=== PATIENT | female | born 2000 | race Caucasian/White ===

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

== ENCOUNTER 2022-01-27 12:10 | Inpatient (IN) | payer MEDICAID, OTHER ==
[2022-01-27 12:56] LABS: Amphetamine Screen,Urine Not Detected (NotDetected); Barbiturate Screen,Urine Not Detected (NotDetected); Benzodiazepines Screen,Urine Detected (NotDetected); Cocaine Screen,Urine Not Detected (NotDetected); Methadone Screen, Urine Not Detected (NotDetected); Opiate Screen,Urine Not Detected (NotDetected); Oxycodone Screen, Urine Not Detected (NotDetected); Phencyclidine Screen,Urine Not Detected (NotDetected); Tricyclic Antidepressant,Urine Not Detected (NotDetected); Urn Cannabinoid Scrn Not Detected (NotDetected)
--- NOTE | 2022-01-27 13:41 | ED ---
Psych HPI - General Chief Complaint: Psychiatric Symptoms Stated Complaint: EPS eval Time Seen by Provider: 01/27/22 12:26 Source: patient, RN notes reviewed Mode of arrival: ambulatory Limitations: no limitations - History of Present Illness Initial Comments: 22-year-old female presents emergency Department with chief complaint of needs psychiatric evaluation. Patient was recently in fdc she has bonded out by [facility] for evaluation. Patient's been having increasing depression, suicidal ideation, hallucinations. Patient's been receiving benzodiazepines in fdc. She states that she wants to harm herself but she does not want to live like this but also wants help. She has been self harming by cutting her legs. She attempted suicide in fdc. - Related Data Home Medications Medication Instructions Recorded Confirmed LORazepam [Ativan] 1 mg PO TID 01/27/22 01/27/22 OLANZapine [ZyPREXA] 10 mg PO DIRECTED 01/27/22 01/27/22 Sertraline [Zoloft] 100 mg PO DAILY 01/27/22 01/27/22 Allergies Allergy/AdvReac Type Severity Reaction Status Date / Time No Known Allergies Allergy Verified 01/27/22 14:55 Review of Systems ROS Statement: Those systems with pertinent positive or pertinent negative responses have been documented in the HPI. ROS Other: All systems not noted in ROS Statement are negative. Past Medical History Past Medical History: No Reported History History of Any Multi-Drug Resistant Organisms: None Reported Past Surgical History: No Surgical Hx Reported Past Psychological History: Anxiety Smoking Status: Vaper Past Alcohol Use History: None Reported Past Drug Use History: None Reported General Exam Limitations: no limitations General appearance: alert, in no apparent distress Head exam: Present: atraumatic, normocephalic, normal inspection Eye exam: Present: normal appearance, PERRL, EOMI. Absent: scleral icterus, conjunctival injection, periorbital swelling ENT exam: Present: normal exam, normal oropharynx, mucous membranes moist Neck exam: Present: normal inspection, full ROM. Absent: tenderness, meningismus, lymphadenopathy Respiratory exam: Present: normal lung sounds bilaterally. Absent: respiratory distress, wheezes, rales, rhonchi, stridor Cardiovascular Exam: Present: regular rate, normal rhythm, normal heart sounds. Absent: systolic murmur, diastolic murmur, rubs, gallop, clicks GI/Abdominal exam: Present: soft, normal bowel sounds. Absent: distended, tenderness, guarding, rebound, rigid Neurological exam: Present: alert Psychiatric exam: Present: depressed Skin exam: Present: warm, dry, intact, normal color. Absent: rash Course Vital Signs 01/27/22 12:14 Temperature 98.1 F Pulse Rate 99 Respiratory 16 Rate Blood Pressure 131/71 O2 Sat by Pulse 100 Oximetry Medical Decision Making - Medical Decision Making admit To psychiatric services. - Lab Data Lab Results 01/27/22 Range/Units 12:35 Urine Opiates Screen Not Detected (NotDetected) Ur Oxycodone Screen Not Detected (NotDetected) Urine Methadone Screen Not Detected (NotDetected) Ur Propoxyphene Screen Not Detected (NotDetected) Ur Barbiturates Screen Not Detected (NotDetected) U Tricyclic Antidepress Not Detected (NotDetected) Ur Phencyclidine Scrn Not Detected (NotDetected) Ur Amphetamines Screen Not Detected (NotDetected) U Methamphetamines Scrn Not Detected (NotDetected) U Benzodiazepines Scrn Detected H (NotDetected) Urine Cocaine Screen Not Detected (NotDetected) U Marijuana (THC) Screen Not Detected (NotDetected) Disposition Clinical Impression: Depression, Suicidal ideation Disposition: TRANSFER TO PSYCH HOSP/UNIT Referrals: None,Stated [Primary Care Provider] - 1-2 days
[2022-01-27] MEDS ORDERED: ACETAMINOPHEN TAB 325 MG TAB PO STA (18:10)
[2022-01-27] MEDS ORDERED: LORazepam 1 MG TAB PO STA (19:08)
[2022-01-27] MEDS ORDERED: MAG HYDROX/AL HYDROX/SIMETH 30 ML CUP PO PRN (20:27)
[2022-01-27] MEDS ORDERED: ACETAMINOPHEN TAB 325 MG TAB PO PRN (20:27)
[2022-01-27] MEDS ORDERED: LORazepam 1 MG TAB PO PRN (20:27)
[2022-01-27] MEDS ORDERED: MAGNESIUM HYDROXIDE 2,400 MG/10 ML CUP PO PRN (20:27)
[2022-01-27] MEDS ORDERED: LORazepam 2 MG/ML INJ IM PRN (20:29)
[2022-01-28 07:44] LABS: Anisocytosis Slight; Basophils # (A) 0.1 k/uL (0-0.2); Basophils % (A) 1 %; Eosinophils # (A) 0.3 k/uL (0-0.7); Eosinophils % (A) 4 %; HCT 38.3 % (34.0-46.0); HGB 11.4 gm/dL (11.4-16.0); Hypochromasia Marked; Lymphocytes # (A) 2.2 k/uL (1.0-4.8); Lymphocytes % (A) 29 %; MCH 25.2 pg (25.0-35.0); MCHC 29.8 g/dL (31.0-37.0); MCV 84.3 fL (80.0-100.0); Mean Platelet Volume 6.8; Monocytes # (A) 0.7 k/uL (0-1.0); Monocytes % (A) 9 %; Neutrophils # (A) 4.2 k/uL (1.3-7.7); Neutrophils % (A) 54 %; Platelet Count 375 k/uL (150-450); RBC 4.54 m/uL (3.80-5.40); RDW 16.1 % (11.5-15.5); WBC 7.8 k/uL (3.8-10.6)
[2022-01-28 07:53] LABS: ALT 56 U/L (4-34); AST 34 U/L (14-36); African American GFR (CKD) >90 (>60 ml/min/1.73 sqM); Albumin 3.6 g/dL (3.5-5.0); Alkaline Phosphatase 80 U/L (38-126); Anion Gap 8 mmol/L; Blood Urea Nitrogen 11 mg/dL (7-17); Calcium 8.9 mg/dL (8.4-10.2); Carbon Dioxide 27 mmol/L (22-30); Chloride 106 mmol/L (98-107); Glucose 84 mg/dL (74-99); Non-African American GFR(CKD) >90 (>60 ml/min/1.73 sqM); Potassium 4.2 mmol/L (3.5-5.1); Sodium 141 mmol/L (137-145); Total Bilirubin 0.3 mg/dL (0.2-1.3); Total Protein 6.8 g/dL (6.3-8.2)
[2022-01-28] MEDS: haloperidoL 5 MG TAB PO PRN (09:33)
[2022-01-28] MEDS ORDERED: LORazepam 2 MG/ML INJ IM PRN (09:45)
[2022-01-28] MEDS ORDERED: hydrOXYzine pamoate 25 MG CAP PO PRN (10:03)
--- NOTE | 2022-01-28 10:20 | P.HP ---
Psychiatric H&P - . H&P Date: 01/28/22 History & Physical: Allergies Allergy/AdvReac Type Severity Reaction Status Date / Time No Known Allergies Allergy Verified 01/27/22 14:55 Vital Signs Temp 98.6 F 01/28/22 07:17 Pulse 98 01/28/22 07:17 Resp 26 H 01/27/22 20:30 BP 117/74 01/28/22 07:17 Pulse Ox 98 01/28/22 07:17 Intake & Output 01/27/22 01/28/22 01/28/22 18:59 06:59 18:59 Weight 63.503 kg 66.224 kg Laboratory Last Values WBC 7.8 k/uL (3.8-10.6) 01/28/22 07:08 RBC 4.54 m/uL (3.80-5.40) 01/28/22 07:08 Hgb 11.4 gm/dL (11.4-16.0) 01/28/22 07:08 Hct 38.3 % (34.0-46.0) 01/28/22 07:08 MCV 84.3 fL (80.0-100.0) 01/28/22 07:08 MCH 25.2 pg (25.0-35.0) 01/28/22 07:08 MCHC 29.8 g/dL (31.0-37.0) L 01/28/22 07:08 RDW 16.1 % (11.5-15.5) H 01/28/22 07:08 Plt Count 375 k/uL (150-450) 01/28/22 07:08 MPV 6.8 01/28/22 07:08 Neutrophils % 54 % 01/28/22 07:08 Lymphocytes % 29 % 01/28/22 07:08 Monocytes % 9 % 01/28/22 07:08 Eosinophils % 4 % 01/28/22 07:08 Basophils % 1 % 01/28/22 07:08 Neutrophils # 4.2 k/uL (1.3-7.7) 01/28/22 07:08 Lymphocytes # 2.2 k/uL (1.0-4.8) 01/28/22 07:08 Monocytes # 0.7 k/uL (0-1.0) 01/28/22 07:08 Eosinophils # 0.3 k/uL (0-0.7) 01/28/22 07:08 Basophils # 0.1 k/uL (0-0.2) 01/28/22 07:08 Hypochromasia Marked 01/28/22 07:08 Anisocytosis Slight 01/28/22 07:08 Sodium 141 mmol/L (137-145) 01/28/22 07:08 Potassium 4.2 mmol/L (3.5-5.1) 01/28/22 07:08 Chloride 106 mmol/L (98-107) 01/28/22 07:08 Carbon Dioxide 27 mmol/L (22-30) 01/28/22 07:08 Anion Gap 8 mmol/L 01/28/22 07:08 BUN 11 mg/dL (7-17) 01/28/22 07:08 Creatinine 0.53 mg/dL (0.52-1.04) 01/28/22 07:08 Est GFR (CKD-EPI)AfAm >90 (>60 ml/min/1.73 sqM) 01/28/22 07:08 Est GFR (CKD-EPI)NonAf >90 (>60 ml/min/1.73 sqM) 01/28/22 07:08 Glucose 84 mg/dL (74-99) 01/28/22 07:08 Calcium 8.9 mg/dL (8.4-10.2) 01/28/22 07:08 Total Bilirubin 0.3 mg/dL (0.2-1.3) 01/28/22 07:08 AST 34 U/L (14-36) 01/28/22 07:08 ALT 56 U/L (4-34) H 01/28/22 07:08 Alkaline Phosphatase 80 U/L (38-126) 01/28/22 07:08 Total Protein 6.8 g/dL (6.3-8.2) 01/28/22 07:08 Albumin 3.6 g/dL (3.5-5.0) 01/28/22 07:08 TSH 1.290 mIU/L (0.465-4.680) 01/28/22 07:08 Urine Opiates Screen Not Detected (NotDetected) 01/27/22 12:35 Ur Oxycodone Screen Not Detected (NotDetected) 01/27/22 12:35 Urine Methadone Screen Not Detected (NotDetected) 01/27/22 12:35 Ur Propoxyphene Screen Not Detected (NotDetected) 01/27/22 12:35 Ur Barbiturates Screen Not Detected (NotDetected) 01/27/22 12:35 U Tricyclic Antidepress Not Detected (NotDetected) 01/27/22 12:35 Ur Phencyclidine Scrn Not Detected (NotDetected) 01/27/22 12:35 Ur Amphetamines Screen Not Detected (NotDetected) 01/27/22 12:35 U Methamphetamines Scrn Not Detected (NotDetected) 01/27/22 12:35 U Benzodiazepines Scrn Detected (NotDetected) H 01/27/22 12:35 Urine Cocaine Screen Not Detected (NotDetected) 01/27/22 12:35 U Marijuana (THC) Screen Not Detected (NotDetected) 01/27/22 12:35 Coronavirus (PCR) Not Detected (Not Detectd) 01/27/22 15:57 01/28/22 09:46 IDENTIFYING DATA: Patient is a 22-year-old female, currently , has 2 kids, lives with her grandfather and father in a house. Patient was recently released from long-term. HPI: Patient presented to the hospital yesterday for a psychiatric evaluation brought in from the long-term. Patient apparently has been having increase in her depression and suicidal thoughts and hallucinations according to ER report. Patient apparently was cutting herself in her legs and attempted suicide in the long-term. Patient's UDS was positive for benzodiazepines. Patient was seen today and admitted voluntarily to the mental health unit. Patient claims that she has been having hallucinations and increase in her anxiety and depression lately. She was fairly tearful and had poor hygiene and grooming during the conversation. She claims that the "Ativan is not helping me anymore" and states that the anxiety "is coming from my chest". She states that she does not know what's real or not. She states that "I want to be with God" and was stating that she is having suicidal thoughts however no intent or plan. She states that it is a "constant trevino in my mind" and spoke about her drug use and also her going to long-term several times and also rehab. She claims that she was cutting herself in the long-term with a razor blade and attempted to hang herself as well. She states that the auditory and visual hallucinations or fairly vague and states that "I can't explain it" and states that she sees "hell". She also spoke about paranoia about other people talking about her and also states that "Satan and demons are getting to come to get me". She states that she's been in long-term for 2 months now for larceny charges. She states that her sleep has been poor. Patient denies homicidal ideations intent or plan. Patient denies any flight of ideas racing thoughts and increased in goal directed behavior. Patient admits to using heroin and methamphetamine in the past however has been sober for the past 2-3 months. She states that she also uses marijuana frequently. Denies any other recreational drug use or cigarettes. She claims that she was sharing needles before when she was using heroin and states that she may be at risk for HIV and hep c. PAST PSYCHIATRIC HISTORY: Patient states that she has some formal psychiatric history mainly substance related. Patient is currently on zyprexa, ativan and zoloft. She claims that she was psychiatrically hospitalized twice at the age of 14 [facility] and also at [facility]. Patient denies any psychiatric outpatient follow-up. She claims that she attempted suicide twice in the long-term. PMH:denies ALLERGIES: as per EMR CHEMICAL DEPENDENCY HISTORY: as per HPI FAMILY PSYCHIATRIC/SUBSTANCE USE HISTORY: states that there is schizophrenia and bipolar disorder on her mothers side. SOCIAL HISTORY: Patient was born and raised in [place]. She states that she completed up to the 10th grade in school. 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 She claims that she has been in and out of long-term several times within the past 2-3 years. She states that she has 2 kids, is currently . She states that she lives currently in a house with her grandfather and father. MENTAL STATUS EXAM: General Appearance: Patient appears to have several tattoos, stated age is alert, directable, and attempts to cooperate. Tearful at times. Patient appears to have poor hygiene and grooming. Behavior: Patient is seated without any agitated behavior. Tearful. Speech: Patient's speech is fluent and nonpressured. Soft tone. Mood/Affect: Patient reports their mood is depressed and anxious, affect is congruent Suicidality/Homicidality: Patient denies having any homicidal ideation intent or plan. She claims that she does have suicidal thoughts, no intent or plan. Perceptions: Patient denies any visual hallucinations and denies any auditory hallucinations Though content/process: There is no evidence of any delusional thought content and thought process is linear and goal-directed. Focused on her drug use and was fairly vague about her symptoms. Memory and concentration: AOX3, grossly intact for the purposes of this session. Can spell "WORLD" backwards Judgment and insight: poor STRENGTHS/WEAKNESSES: strength is that patient is resilient. Weakness is that patient has poor judgment and is impulsive INTELLECT: average IMPRESSIONS: Major depressive disorder, recurrent, with psychotic features Anxiety disorder unspecified Cannabis use disorder History of methamphetamine and opioid abuse PLAN: -Patient is admitted under voluntary status to MHU for stabilization of psychiatric symptoms and safety. Patient has signed adult voluntary form and medication consent and is placed in patient's chart. -Medications : Will start patient on Cymbalta 30 mg daily for mood/anxiety, Seroquel 50 mg daily at bedtime for mood stabilization/insomnia/psychosis. -Ativan and Haldol PRN for agitation/aggression -ordered Hep C, HIV and syphillis due to patients exposure and high risk behavior including sharing needles. -Patient was counselled on substance abuse and desired to cut back on use -Patient was informed of the risks, benefits and side effects of the medication and patient verbally consented to taking the medications. Patient signed med consent form and was placed in chart. -Internal Medicine consult to perform medical evaluation and physical. -NRT - not needed as patient does not smoke. -SW on board for discharge planning. Encourage patient to participate in groups to work on coping skills. Will offer rehab for substance use.
[2022-01-28] MEDS: DULoxetine HCL 30 MG CAPSULE.DR PO SCH (11:12)
[2022-01-28 12:01] LABS: LDL Cholesterol,Calculated 48.7 mg/dL (0.0-131.0)
[2022-01-28] MEDS: LORazepam 1 MG TAB PO PRN (15:26)
[2022-01-28 17:28] LABS: HIV 2 AB Non-Reactive (Non-Reactive); HIV AB P24 Non-Reactive (Non-Reactive); HIV P24 AG Non-Reactive (Non-Reactive)
--- NOTE | 2022-01-28 18:07 | P.MDCNMH ---
History of Present Illness Chief Complaint: Medical management This is a 22-year-old female with history of substance abuse depression admitted for worsening depression with psychotic features. Patient denies any history of medical issues denies diabetes cardiac renal or lung problems. Currently does not take any medications at home. She states she is feeling fine otherwise no shortness of breath no GI no respiratory complaints. Her blood work is grossly normal. 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 Her liver enzymes are normal. She does have high risk behavior Review of Systems Negative except as mentioned in HPI Past Medical History Past Medical History: No Reported History History of Any Multi-Drug Resistant Organisms: None Reported Past Surgical History: No Surgical Hx Reported Past Anesthesia/Blood Transfusion Reactions: No Reported Reaction Past Psychological History: Anxiety, Bipolar, Depression Smoking Status: Former smoker, Vaper Past Alcohol Use History: None Reported Past Drug Use History: Heroin, Methamphetamine, Opiates Additional Drug Use History / Comment(s): pt reports history of IV drug abuse including heroin, methamphetamines, and fentanyl. pt reports last use was beginning of November 2021 Medications and Allergies Home Medications Medication Instructions Recorded Confirmed Type LORazepam [Ativan] 1 mg PO TID 01/27/22 01/27/22 History OLANZapine [ZyPREXA] 10 mg PO DIRECTED 01/27/22 01/27/22 History Sertraline [Zoloft] 100 mg PO DAILY 01/27/22 01/27/22 History Allergies Allergy/AdvReac Type Severity Reaction Status Date / Time No Known Allergies Allergy Verified 01/27/22 14:55 Physical Exam Vitals: Vital Signs Temp Pulse Resp BP Pulse Ox 01/28/22 07:17 98.6 F 98 117/74 98 01/27/22 20:30 98.5 F 78 26 H 143/66 98 - Constitutional General appearance: cooperative, no acute distress - EENT Eyes: EOMI, PERRLA, normal appearance ENT: normal oropharynx - Neck Neck: no lymphadenopathy, normal ROM - Respiratory Respiratory: bilateral: CTA - Cardiovascular Rhythm: regular Heart sounds: normal: S1, S2 - Gastrointestinal General gastrointestinal: normal bowel sounds, no organomegaly, no tenderness - Integumentary Integumentary: normal - Neurologic Neurologic: CNII-XII intact - Musculoskeletal Musculoskeletal: gait normal, strength equal bilaterally - Psychiatric Psychiatric: A&O x's 3 Cranial Nerve Examination - Cranial Nerves Cranial Nerve I- Olfactory: Intact Cranial Nerve II- Optic: Intact Cranial Nerve III- Oculomotor: Intact Cranial Nerve IV- Trochlear: Intact Cranial Nerve V- Trigeminal: Intact Cranial Nerve - Abducens: Intact Cranial Nerve VII- Facial: Intact Cranial Nerve VIII- Auditory: Intact Cranial Nerve IX- Glossopharyngeal: Intact Cranial Nerve X- Vagus: Intact Cranial Nerve XI- Accessory: Intact Cranial Nerve XII- Hypoglossal: Intact Results CBC & Chem 7: 01/28/22 07:08 01/28/22 07:08 Labs: Abnormal Lab Results - Last 24 Hours (Table) 01/28/22 01/28/22 01/28/22 Range/Units 07:08 07:08 07:08 MCHC 29.8 L (31.0-37.0) g/dL RDW 16.1 H (11.5-15.5) % ALT 56 H (4-34) U/L Hep C IgG Ab Reactive A (Nonreactive) Assessment and Plan Plan: #Worsening depression with psychotic features Psychiatry following Checking lipid panel, TSH, A1c, HIV, hepatitis viral panel, syphilis Hepatitis C antibody positive, we will order titer
[2022-01-28] MEDS: QUEtiapine 50 MG TAB PO SCH (21:09)
[2022-01-29] MEDS: DULoxetine HCL 30 MG CAPSULE.DR PO SCH (08:34)
--- NOTE | 2022-01-29 10:07 | P.PN ---
Progress Note - Text Progress Note Date: 01/29/22 Interval History: Patient was seen in her room this morning and was doing meditation and was dir ectable and agreeable to speak with television script writer in the office. Patient appears to be less tearful however continues to have a constricted affect. She states that she feels "about the same" as yesterday. She claims that she is still feeling somewhat depressed and endorsed some paranoia about other patients on the unit. She states that she slept fairly well last night. She explained to television script writer today that she is feeling "like I don't know what to do" and states that she feels very indecisive. She claims that her anxiety is still poorly controlled. She was agreeable to have her Cymbalta increased and wants to stay on the same dose of Seroquel. She states that she has not been going to groups however was encouraged to do so today. fair appetite. At this time patient denies any suicidal or homical ideations, intent or plan. Patient denies any visual hallucinations. continues to endorse AH, but states they are improving. Patient denies any side effects from the medications and has been compliant with meds. Mental Status Exam: General Appearance: Patient appears to have several tattoos, stated age is alert, directable, and attempts to cooperate. not tearful today. Patient appears to have improving hygiene and grooming. Behavior: Patient is seated without any agitated behavior. more cooperaitve Speech: Patient's speech is fluent and nonpressured. Soft tone. Mood/Affect: Patient reports their mood is depressed and anxious, improving, affect is congruent and constricted Suicidality/Homicidality: Patient denies having any homicidal ideation intent or plan. denies any suicidal thoughts, no intent or plan. Perceptions: Patient denies any visual hallucinations and denies any auditory hallucinations Though content/process: There is no evidence of any delusional thought content and thought process is linear and goal-directed. Memory and concentration: AOX3, grossly intact for the purposes of this session Judgment and insight: poor, improving midlly IMPRESSIONS: Major depressive disorder, recurrent, with psychotic features Anxiety disorder unspecified Cannabis use disorder History of methamphetamine and opioid abuse Plan: -Patient continues to meet criteria for inpatient psychiatric admission for symptom stabilization and safety. Patient has signed adult voluntary form and medication consent and was placed in patient's chart. -Medications: Increase Cymbalta to 60 mg daily for mood/anxiety, Seroquel 50 mg daily at bedtime for mood stabilization/insomnia/psychosis. -When necessary Ativan and Haldol for agitation/aggression. -patient is positive for Hep C IgG, negative for HIV and syphillis. Patients ALT slightly elevated. She will need to follow up with pcp and referred to GI for treatment as an outpatient. -NRT - not needed as patient does not smoke. -SW on board for discharge planning. Encouraged the patient to participate in milieu. Will offer rehab for substance use.
[2022-01-29] MEDS: haloperidoL 5 MG TAB PO PRN ×2 (10:24→17:29)
[2022-01-29] MEDS: LORazepam 1 MG TAB PO PRN (10:24)
[2022-01-29] MEDS: QUEtiapine 50 MG TAB PO SCH (21:34)
--- NOTE | 2022-01-30 07:29 | P.PN ---
Progress Note - Text Progress Note Date: 01/30/22 Interval History: Patient was seen in her room this morning and was agreeable to speak with television writer in the office. Patient appears to be having a constricted affect this morning. She states that she is doing better today. She claims that her mood and anxiety of an improving on the medications. She states that she was able to sleep fairly throughout the night. She claims that she was hearing voices yesterday and required Haldol. She claims that this morning she has not heard any voices and does not feel that she is in distress. She claims that she did go to some groups. She did state that she signed AMA form yesterday wants to go to her father's house. She claims that she would like to eventually go to rehab and will take the resources. She asked questions about her medications. fair appetite. At this time patient denies any suicidal or homical ideations, intent or plan. Patient denies any visual hallucinations. continues to endorse AH, but states they are improving. Patient denies any side effects from the medications and has been compliant with meds. Mental Status Exam: General Appearance: Patient appears to have several tattoos, stated age is alert, directable, and attempts to cooperate. Patient appears to have improving hygiene and grooming. Behavior: Patient is seated without any agitated behavior. more cooperaitve Speech: Patient's speech is fluent and nonpressured. Mood/Affect: Patient reports their mood is improving, affect is congruent and constricted Suicidality/Homicidality: Patient denies having any homicidal ideation intent or plan. denies any suicidal thoughts, no intent or plan. Perceptions: Patient denies any visual hallucinations and denies any current auditory hallucinations Though content/process: There is no evidence of any delusional thought content and thought process is linear and goal-directed. concrete Memory and concentration: AOX3, grossly intact for the purposes of this session Judgment and insight: improving midlly IMPRESSIONS: Major depressive disorder, recurrent, with psychotic features Anxiety disorder unspecified Cannabis use disorder History of methamphetamine and opioid abuse Plan: -Patient continues to meet criteria for inpatient psychiatric admission for symptom stabilization and safety. Patient has signed adult voluntary form and medication consent and was placed in patient's chart. -Medications: Cymbalta to 60 mg daily for mood/anxiety, increase Seroquel 75 mg daily at bedtime for mood stabilization/insomnia/psychosis. -When necessary Ativan and Haldol for agitation/aggression. -patient is positive for Hep C IgG, negative for HIV and syphillis. Patients ALT slightly elevated. She will need to follow up with pcp and referred to GI for treatment as an outpatient. -NRT - not needed as patient does not smoke. -SW on board for discharge planning. Encouraged the patient to participate in milieu. patient signed AMA yesterday. Likely discharge tomorrow, she is a [facility] hold.
[2022-01-30] MEDS: DULoxetine HCL 60 MG CAPSULE.DR PO SCH (08:14)
[2022-01-30] MEDS: haloperidoL 5 MG TAB PO PRN (08:15)
[2022-01-30] MEDS: HALOPERIDOL LACTATE 5 MG/ML 1 ML VIAL IM PRN (09:20)
[2022-01-30] MEDS ORDERED: PALIPERIDONE 3 MG TAB.ER.24 PO SCH (21:00)
[2022-01-30] MEDS ORDERED: QUEtiapine 25 MG TAB PO SCH (21:00)
[2022-01-31] MEDS: DULoxetine HCL 60 MG CAPSULE.DR PO SCH (08:39)
[2022-01-31] MEDS: haloperidoL 5 MG TAB PO PRN (08:41)
[2022-01-31] MEDS ORDERED: LORazepam 2 MG/ML INJ IM STA (10:16)
[2022-01-31] MEDS ORDERED: LORazepam 2 MG/ML INJ ONE (10:18)
[2022-01-31] MEDS: HALOPERIDOL LACTATE 5 MG/ML 1 ML VIAL IM PRN (10:19)
--- NOTE | 2022-01-31 11:02 | P.PN ---
Progress Note - Text Progress Note Date: 01/31/22 Interval History: Patient was seen in her room sitting on the floor facing the wall. She was di rectable and agreeable to lead technical writer in the office. She appeared to be gazing around the room suspiciously. She was tearful at times during the interview and claims that her vision is "going" and reported blurriness of vision. She states that it started this morning. She claims that she is scared and was fairly paranoid. She claims that she did signed AMA and also rescinded it and is agreeable to continue with treatment. She was asking about discharge. She continues to be crying and yelling intermittently, meotionally labile and impulsive. She claims that she was hearing voices yesterday and this morning tellin her "bad things" and to hurt herself. She claims that she wants to go to her father's house. She asked questions about her medications. fair appetite. At this time patient denies any homical ideations, intent or plan. she states that she is still having suicidal thoughts, no intent or plan. Patient denies any visual hallucinations. Continues to endorse AH. Patient denies any side effects from the medications and has been compliant with meds. Mental Status Exam: General Appearance: Patient appears to have several tattoos, stated age is alert, directable, bizarre and gazing around the room. Patient appears to have improving hygiene and grooming. Behavior: Patient is seated without any agitated behavior. labile, emotional. tearful at times. paranoia. Speech: Patient's speech is fluent and nonpressured. Mood/Affect: Patient reports their mood is depressed and anxious, affect is congruent Suicidality/Homicidality: Patient denies having any homicidal ideation intent or plan. denies any suicidal thoughts, no intent or plan. Perceptions: Patient denies any visual hallucinations and denies any current auditory hallucinations Though content/process: paranoia, concrete. focused on discharge. Memory and concentration: AOX3, grossly intact for the purposes of this session Judgment and insight: poor IMPRESSIONS: Major depressive disorder, recurrent, with psychotic features Anxiety disorder unspecified Cannabis use disorder History of methamphetamine and opioid abuse Plan: -Patient continues to meet criteria for inpatient psychiatric admission for symptom stabilization and safety. Patient has signed adult voluntary form and medication consent and was placed in patient's chart. -Medications: Cymbalta increase 60 mg daily + 30 mg qhs for mood/anxiety, d/c prolixin due to likely side effect of blurry vision. start invega 3 mg qhs for psychosis/mood stabilization, can increase over the weekend if tolerated/needed. -When necessary Ativan and Haldol for agitation/aggression. -patient is positive for Hep C IgG, negative for HIV and syphillis. ALT slightly elevated. She will need to follow up with pcp and referred to GI for treatment as an outpatient. -NRT - not needed as patient does not smoke. -SW on board for discharge planning. Encouraged the patient to participate in milieu. patient signed AMA and rescinded it. Patient is a [facility] hold.
[2022-01-31] MEDS: DULoxetine HCL 30 MG CAPSULE.DR PO SCH (20:10)
[2022-01-31] MEDS: PALIPERIDONE 3 MG TAB.ER.24 PO SCH (20:11)
[2022-01-31] MEDS ORDERED: PALIPERIDONE 3 MG TAB.ER.24 PO SCH (21:00)
[2022-01-31] MEDS ORDERED: PALIPERIDONE 6 MG TAB.ER.24 PO SCH (21:00)
[2022-02-01] MEDS: DULoxetine HCL 60 MG CAPSULE.DR PO SCH (08:11)
[2022-02-01] MEDS: PALIPERIDONE 3 MG TAB.ER.24 PO SCH ×2 (08:12→21:12)
[2022-02-01] MEDS ORDERED: diphenhydrAMINE 50 MG CAP PO STA (14:09)
[2022-02-01] MEDS: LORazepam 0.5 MG TAB PO PRN (15:34)
--- NOTE | 2022-02-01 20:19 | P.PN ---
Progress Note - Text Progress Note Date: 02/01/22 Interval History: Patient was seen in the conference room. She reports she is tolerating her medications "fine". She denies auditory or visual hallucinations at the time of assessment, but appears internally preoccupied and admits to hearing voices earlier today of more than one voice talking to her telling her things that she can't explain it. She reports "ok" sleep and appetite. At this time patient denies any suicidal or homical ideations, intent or plan. Patient denies any side effects from the medications and has been compliant with meds. She denies blurry vision today. Mental Status Exam: General Appearance: Patient appears to have several tattoos, appears stated age. Patient appears to have improving hygiene and grooming. Behavior: Patient is seated without any agitated behavior. Speech: Patient's speech is fluent with low volume and tone. Mood/Affect: Patient reports mood is anxious, affect is depressed and blunted. Suicidality/Homicidality: Patient denies having any suicidal or homicidal ideation intent or plan. Perceptions: Patient denies any visual hallucinations but does endorse auditory hallucinations earlier today of voices talking to her. Though content/process: [place], some delay in response, thought blocking. Memory and concentration: Grossly intact for the purposes of this session Judgment and insight: poor IMPRESSIONS: Major depressive disorder, recurrent, with psychotic features Anxiety disorder unspecified Cannabis use disorder History of methamphetamine and opioid abuse Plan: -Patient continues to meet criteria for inpatient psychiatric admission for symptom stabilization and safety. Patient has signed adult voluntary form and medication consent and was placed in patient's chart. -Medications: Cymbalta increase 60 mg daily + 30 mg qhs for mood/anxiety. Increase Invega to 3 mg BID for psychosis/mood stabilization starting tonight. -When necessary Ativan and Haldol for agitation/aggression. -NRT - not needed as patient does not smoke. -SW on board for discharge planning. Encouraged the patient to participate in milieu. Patient is a care home hold.
[2022-02-01] MEDS: DULoxetine HCL 30 MG CAPSULE.DR PO SCH (21:12)
[2022-02-01 21:46] VITALS: RESP 16
[2022-02-02 07:15] VITALS: BP 93/54; PULSE 110; TEMP 97.9
[2022-02-02] MEDS: PALIPERIDONE 3 MG TAB.ER.24 PO SCH ×2 (08:12→21:00)
[2022-02-02] MEDS: DULoxetine HCL 60 MG CAPSULE.DR PO SCH (08:13)
[2022-02-02] MEDS: LORazepam 0.5 MG TAB PO PRN ×2 (10:46→15:41)
--- NOTE | 2022-02-02 20:10 | P.PN ---
Progress Note - Text Progress Note Date: 02/02/22 Interval History: Patient was seen in the conference room. She reports her mood is "good today, today is a much better day". She denies auditory or visual hallucinations at the time of assessment, and reports she last heard the voices yesterday and none so far today. She reports good sleep and appetite. At this time patient denies any suicidal or homicidal ideations, intent or plan. Patient denies any side effects from the medications and has been compliant with meds. She denies blurry vision today. Thoughts are more linear and organized. Mental Status Exam: General Appearance: Patient appears to have several tattoos, appears stated age. Patient appears to have improving hygiene and grooming. Behavior: Patient is seated without any agitated behavior. Speech: Patient's speech is fluent with normal rate/volume/tone. Mood/Affect: Patient reports mood is "better today", affect is broader. Suicidality/Homicidality: Patient denies having any suicidal or homicidal ideation intent or plan. Perceptions: Patient denies any auditory or visual hallucinations today. Though content/process: Linear, relevant. No thought blocking on assessment today. Memory and concentration: Grossly intact for the purposes of this session Judgment and insight: poor, improving IMPRESSIONS: Major depressive disorder, recurrent, with psychotic features Anxiety disorder unspecified Cannabis use disorder History of methamphetamine and opioid abuse Plan: -Patient continues to meet criteria for inpatient psychiatric admission for symptom stabilization and safety. Patient is voluntary. -Medications: Continue Cymbalta 60 mg daily + 30 mg qhs for mood/anxiety. Continue Invega 3 mg BID for psychosis/mood stabilization. -When necessary Ativan and Haldol for agitation/aggression. -NRT - not needed as patient does not smoke. -SW on board for discharge planning. Encouraged the patient to participate in milieu. Patient is a long term hold.
[2022-02-02] MEDS: DULoxetine HCL 30 MG CAPSULE.DR PO SCH (21:00)
[2022-02-03] MEDS ORDERED: PALIPERIDONE IM 234 MG/1.5 ML SYG IM STA (11:03)
--- NOTE | 2022-02-03 11:41 | P.DS ---
Providers Date of admission: 01/27/22 20:07 Expected date of discharge: 02/03/22 Attending physician: Gray Bhakta MD Consults: 01/27/22 20:27 Consult Physician Routine Consulting Provider: Elizabeth Physician Consult Reason/Comments: H&P and medical Do you want consulting provider notified?: Yes Primary care physician: Stated None - Discharge Diagnosis(es) (1) Major depressive disorder with psychotic features Current Visit: Yes Status: Acute Priority: High (2) Anxiety disorder Current Visit: Yes Status: Acute Priority: Medium (3) Cannabis use disorder, mild, abuse Current Visit: Yes Status: Acute Priority: Medium (4) History of methamphetamine abuse Current Visit: Yes Status: Acute Priority: Low (5) History of opioid abuse Current Visit: Yes Status: Acute Priority: Low Hospital Course: Admission HPI: Admission note was completed by sign writer letterer or painter "Patient is a 22-year-old female, currently , has 2 kids, lives with her grandfather and father in a house. Patient was recently released from alf. Patient presented to the hospital yesterday for a psychiatric evaluation brought in from the alf. Patient apparently has been having increase in her depression and suicidal thoughts and hallucinations according to ER report. Patient apparently was cutting herself in her legs and attempted suicide in the alf. Patient's UDS was positive for benzodiazepines. Patient was seen today and admitted voluntarily to the mental health unit. Patient claims that she has been having hallucinations and increase in her anxiety and depression lately. She was fairly tearful and had poor hygiene and grooming during the conversation. She claims that the "Ativan is not helping me anymore" and states that the anxiety "is coming from my chest". She states that she does not know what's real or not. She states that "I want to be with God" and was stating that she is having suicidal thoughts however no intent or plan. She states that it is a "constant trevino in my mind" and spoke about her drug use and also her going to alf several times and also rehab. She claims that she was cutting herself in the alf with a razor blade and attempted to hang herself as well. She states that the auditory and visual hallucinations or fairly vague and states that "I can't explain it" and states that she sees "hell". She also spoke about paranoia about other people talking about her and also states that "Satan and demons are getting to come to get me". She states that she's been in alf for 2 months now for larceny charges. She states that her sleep has been poor. Patient denies homicidal ideations intent or plan. Patient denies any flight of ideas racing thoughts and increased in goal directed behavior. Patient admits to using heroin and methamphetamine in the past however has been sober for the past 2-3 months. She states that she also uses marijuana frequently. Denies any other recreational drug use or cigarettes. She claims that she was sharing needles before when she was using heroin and states that she may be at risk for HIV and hep c." Hospital course: Upon admission to the unit patient was directable and agreeable to commence treatment and signed adult voluntary form. Patient and his up signing AMA during her hospitalization however and it up rescinding it prior to discharge. Patient initially was fairly impulsive, labile and required redirection however with treatment eventually got along well with other patients on the unit and followed unit protocol. Patient was compliant with the medications. Patient did experience transient side effects of Prolixin including blurry vision which lasted 1 day and subsided after the medication was discontinued. Patient was started on Cymbalta and increased to a dose of 60 mg twice a day for mood/anxiety, paliperidone by mouth 3 mg twice a day for psychosis/mood stabilization. Patient was transitioned onto Invega Sustenna, given 234 mg IM on 02/03 and will be due for her next dose of 156 mg IM on 02/10 and 117 mg IM on 03/03. Patient spoke of her stressors and engaged in therapy both group and individual. Patient was also seen by medical team for history and physical exam. Throughout the course of the hospitalization patient gradually improved with regards to mood, anxiety, psychosis, irritability/agitation, sleep and returned back to their baseline level of functioning. On the day of discharge patient denied any suicidal or homicidal ideations intent or plan denied any auditory or visual hallucinations. Patient endorsed wanting to live for her future and her health. The patient denied any access to guns or weapons. Patient denied any paranoia and did not endorse any delusions. Patient does have a significant history of substance abuse and was counseled on abstaining from all substances including alcohol and marijuana. Patient was offered however declined inpatient substance-abuse rehab. Patient will be going back to alf as she is currently a alf hold. Patient was also counseled on the medications and need for regular compliance and was encouraged to follow-up with their outpatient appointment for mental health and also for primary care. Mental status exam: General Appearance: Patient appears to be stated age is alert, directable, and attempts to be cooperative. Patient is in no acute distress and has improved hygiene and grooming Behavior: Patient is calmly seated without any agitated behavior. Cooperative today. Speech: Patient's speech is fluent and nonpressured. Smith Mood/Affect: Patient reports their mood is "good", affect is congruent and constricted. Suicidality/Homicidality: Patient denies having any suicidal or homicidal ideation intent or plan. Perceptions: Patient denies any auditory or visual hallucinations. Though content/process: There is no evidence of any delusional thought content and thought process is linear and goal-directed. Smith. Memory and concentration: AOX3, grossly intact for the purposes of this session. Can spell "WORLD" backwards correctly. Judgment and insight: chronically poor, however has improved with guarded prognosis Impression: Major depressive disorder with psychotic features Anxiety disorder unspecified Cannabis use disorder History of methamphetamine and opioid abuse Plan: -Continue with discharge today as patient has improved and stabilized psychiatrically and is not currently an imminent threat to herself and/or others. Patient will remain at chronically elevated risk for harm to self and/or others due to her impulsivity and chronically poor insight and judgment. -Continue medications: Cymbalta 60 mg twice a day for mood/anxiety, paliperidone 3 mg twice a day for psychosis/mood stabilization, patient will be given Invega Sustenna 234 mg IM today prior to discharge. She will be due for her next dose of 156 mg IM on 02/10 and 117 mg IM on 03/03 -Patient was counseled on the need for medication compliance and appropriate follow-up at mental health and also primary care for medical issues. Patient verbalized understanding and agreed. -Social work to help arrange patient's discharge today back to alf as she is currently a alf hold. Social work also to arrange for patients follow up appointments with [facility] for psychiatric care along with follow up with primary care provider. -Patient counseled on abstaining from recreational drugs and marijuana and alcohol. Was informed/educated on the adverse effects on their physical and mental health. Patient verbally agreed and understood. -Patient was instructed to return to the hospital or seek immediate medical care if their psychiatric or medical symptoms do worsen or reoccur. Allergies Allergy/AdvReac Type Severity Reaction Status Date / Time No Known Allergies Allergy Verified 01/27/22 14:55 Laboratory Results WBC 7.8 k/uL (3.8-10.6) 01/28/22 07:08 RBC 4.54 m/uL (3.80-5.40) 01/28/22 07:08 Hgb 11.4 gm/dL (11.4-16.0) 01/28/22 07:08 Hct 38.3 % (34.0-46.0) 01/28/22 07:08 MCV 84.3 fL (80.0-100.0) 01/28/22 07:08 MCH 25.2 pg (25.0-35.0) 01/28/22 07:08 MCHC 29.8 g/dL (31.0-37.0) L 01/28/22 07:08 RDW 16.1 % (11.5-15.5) H 01/28/22 07:08 Plt Count 375 k/uL (150-450) 01/28/22 07:08 MPV 6.8 01/28/22 07:08 Neutrophils % 54 % 01/28/22 07:08 Lymphocytes % 29 % 01/28/22 07:08 Monocytes % 9 % 01/28/22 07:08 Eosinophils % 4 % 01/28/22 07:08 Basophils % 1 % 01/28/22 07:08 Neutrophils # 4.2 k/uL (1.3-7.7) 01/28/22 07:08 Lymphocytes # 2.2 k/uL (1.0-4.8) 01/28/22 07:08 Monocytes # 0.7 k/uL (0-1.0) 01/28/22 07:08 Eosinophils # 0.3 k/uL (0-0.7) 01/28/22 07:08 Basophils # 0.1 k/uL (0-0.2) 01/28/22 07:08 Hypochromasia Marked 01/28/22 07:08 Anisocytosis Slight 01/28/22 07:08 Sodium 141 mmol/L (137-145) 01/28/22 07:08 Potassium 4.2 mmol/L (3.5-5.1) 01/28/22 07:08 Chloride 106 mmol/L (98-107) 01/28/22 07:08 Carbon Dioxide 27 mmol/L (22-30) 01/28/22 07:08 Anion Gap 8 mmol/L 01/28/22 07:08 BUN 11 mg/dL (7-17) 01/28/22 07:08 Creatinine 0.53 mg/dL (0.52-1.04) 01/28/22 07:08 Est GFR (CKD-EPI)AfAm >90 (>60 ml/min/1.73 sqM) 01/28/22 07:08 Est GFR (CKD-EPI)NonAf >90 (>60 ml/min/1.73 sqM) 01/28/22 07:08 Glucose 84 mg/dL (74-99) 01/28/22 07:[address] Glu mg/dL 102 01/28/22 07:08 Hemoglobin A1c 5.2 % (0.0-6.0) 01/28/22 07:08 Calcium 8.9 mg/dL (8.4-10.2) 01/28/22 07:08 Total Bilirubin 0.3 mg/dL (0.2-1.3) 01/28/22 07:08 AST 34 U/L (14-36) 01/28/22 07:08 ALT 56 U/L (4-34) H 01/28/22 07:08 Alkaline Phosphatase 80 U/L (38-126) 01/28/22 07:08 Total Protein 6.8 g/dL (6.3-8.2) 01/28/22 07:08 Albumin 3.6 g/dL (3.5-5.0) 01/28/22 07:08 Triglycerides 147.00 mg/dL (0.00-149.00) 01/28/22 07:08 Cholesterol 124.00 mg/dL (0.00-200.00) 01/28/22 07:08 LDL Cholesterol, Calc 48.7 mg/dL (0.0-131.0) 01/28/22 07:08 VLDL Cholesterol, Calc 29.40 mg/dL (5.00-40.00) 01/28/22 07:08 HDL Cholesterol 45.90 mg/dL (40.00-60.00) 01/28/22 07:08 Cholesterol/HDL Ratio 2.70 Ratio 01/28/22 07:08 TSH 1.290 mIU/L (0.465-4.680) 01/28/22 07:08 Urine Opiates Screen Not Detected (NotDetected) 01/27/22 12:35 Ur Oxycodone Screen Not Detected (NotDetected) 01/27/22 12:35 Urine Methadone Screen Not Detected (NotDetected) 01/27/22 12:35 Ur Propoxyphene Screen Not Detected (NotDetected) 01/27/22 12:35 Ur Barbiturates Screen Not Detected (NotDetected) 01/27/22 12:35 U Tricyclic Antidepress Not Detected (NotDetected) 01/27/22 12:35 Ur Phencyclidine Scrn Not Detected (NotDetected) 01/27/22 12:35 Ur Amphetamines Screen Not Detected (NotDetected) 01/27/22 12:35 U Methamphetamines Scrn Not Detected (NotDetected) 01/27/22 12:35 U Benzodiazepines Scrn Detected (NotDetected) H 01/27/22 12:35 Urine Cocaine Screen Not Detected (NotDetected) 01/27/22 12:35 U Marijuana (THC) Screen Not Detected (NotDetected) 01/27/22 12:35 Treponema pallidum Ab Nonreactive (Nonreactive) 01/28/22 07:08 Coronavirus (PCR) Not Detected (Not Detectd) 01/27/22 15:57 Hep C IgG Ab Reactive (Nonreactive) A 01/28/22 07:08 Hepatitis C RNA Quant 2200 IU/mL (0-0) H 01/29/22 10:38 HCV RNA PCR log IUs/ml 3.34 01/29/22 10:38 HIV-1 Antibody Non-Reactive (Non-Reactive) 01/28/22 07:08 HIV Ag/Ab Interpret 01/28/22 07:08 HIV p24 Antibody Non-Reactive (Non-Reactive) 01/28/22 07:08 HIV-2 Antibody Non-Reactive (Non-Reactive) 01/28/22 07:08 HIV P24 Antigen Non-Reactive (Non-Reactive) 01/28/22 07:08 Vital Signs Temp 97.9 F 02/02/22 06:56 Pulse 110 H 02/02/22 06:56 Resp 16 02/02/22 06:56 BP 93/54 02/02/22 06:56 Pulse Ox 98 02/02/22 06:56 Intake & Output 02/02/22 02/03/22 02/03/22 18:59 06:59 18:59 Weight 65.2 kg Patient Condition at Discharge: Stable Plan - Discharge Summary Discharge Rx Participant: No New Discharge Prescriptions: New Paliperidone [Invega] 3 mg PO BID 4 Days Paliperidone IM [Invega Sustenna] 156 mg IM ONCE #1 each Paliperidone Palmitate [Invega Sustenna] 117 mg IM QMONTHLY #1 each hydrOXYzine pamoate [Vistaril] 25 mg PO BID PRN 30 Days cap PRN Reason: Anxiety DULoxetine HCL [Cymbalta] 60 mg PO BID 30 Days Discontinued Sertraline [Zoloft] 100 mg PO DAILY LORazepam [Ativan] 1 mg PO TID OLANZapine [ZyPREXA] 10 mg PO DIRECTED Discharge Medication List DULoxetine HCL [Cymbalta] 60 mg PO BID 30 Days 02/03/22 [Rx] Paliperidone IM [Invega Sustenna] 156 mg IM ONCE #1 each 02/03/22 [Rx] Paliperidone Palmitate [Invega Sustenna] 117 mg IM QMONTHLY #1 each 02/03/22 [Rx] Paliperidone [Invega] 3 mg PO BID 4 Days 02/03/22 [Rx] hydrOXYzine pamoate [Vistaril] 25 mg PO BID PRN 30 Days cap 02/03/22 [Rx] Follow up Appointment(s)/Referral(s): None,Stated [Primary Care Provider] - 1-2 days Activity/Diet/Wound Care/Special Instructions: Activity and diet as tolerated. Avoid the use of street drugs and alcohol. Take all medications as prescribed. When you are in need of refills on your medications please contact your medical provider and/or outpatient psychiatrist to have this done. Please go to scheduled outpatient appointment for aftercare treatment. If symptoms return or become worse, call the crisis line at and/or go to the nearest emergency room for evaluation Discharge Disposition: DC/TRANSFER COURT/LAW
== END 2022-02-03 15:25 | DRG 885 ==
LOC: EC 12:10 → 3MHU 20:07
PROVIDERS: ADMIT Psychiatry & Neurology Psychiatry; ATTEND Psychiatry & Neurology Psychiatry
DX: F32.3 Major depressive disorder, single episode, severe with psychotic features (principal); R45.851 Suicidal ideations; F12.10 Cannabis abuse, uncomplicated; F41.9 Anxiety disorder, unspecified; Z81.8 Family history of other mental and behavioral disorders; F11.11 Opioid abuse, in remission; F15.11 Other stimulant abuse, in remission; Z28.310 Unvaccinated for COVID-19; Z20.822 Contact with and (suspected) exposure to COVID-19; Z65.3 Problems related to other legal circumstances; Z71.89 Other specified counseling; Z79.899 Other long term (current) drug therapy
CPT/HCPCS: 80053; 80061; 80306; 82075; 83036; 84443; 85025; 86780; 86803; 87390; 87522; 87635; 99285